=== PATIENT | male | born 1960 | race Caucasian/White ===

== ENCOUNTER → 2020-05-14 14:38 | Outpatient (CLI) | payer OTHER, SELFPAY ==
[2020-05-14 15:30] LABS: Alanine Aminotransferase 33 IU/L (<50); Albumin 4.6 g/dL (3.5-5.0); Albumin Globulin Ratio 1.6 (1.0-2.8); Alkaline Phosphatase 63 U/L (38-126); Aspartate Aminotransferase 26 IU/L (17-59); BUN Creatinine Ratio 19.5 (6-22); Bilirubin Total 0.5 mg/dL (0.2-1.3); Blood Urea Nitrogen 17 mg/dL (9-20); Calcium 9.7 mg/dL (8.4-10.2); Carbon Dioxide 25 mmol/L (22-32); Chloride 107 mmol/L (98-107); Estimated Glomerular Filt Rate > 60.0 mL/min (>60); Globulin 2.8 g/dL (1.7-4.1); Glucose 99 mg/dL (70-100); HEMOLYSIS < 15 (0-50); Sodium 140 mmol/L (137-145); Total Protein 7.4 g/dL (6.3-8.2)
[2020-05-14 15:57] LABS: Prostate Specific Antigen Scrn 1.82 ng/mL (0.1-4.0)
[2020-05-14 16:20] LABS: TSH w/ Reflex to FT4 2.82 uIU/mL (0.47-4.68)
== END ==
PROVIDERS: PCP Family Medicine; Referring Provider Family Medicine; Visit Provider Family Medicine
DX: Z00.00 Encounter for general adult medical examination without abnormal findings (principal); K21.9 Gastro-esophageal reflux disease without esophagitis; M43.22 Fusion of spine, cervical region; Z12.5 Encounter for screening for malignant neoplasm of prostate
CPT/HCPCS: 36415; 80053; 84443; G0103

== ENCOUNTER → 2020-05-18 13:54 | Outpatient (CLI) | payer OTHER, SELFPAY ==
[2020-05-20 12:09] LABS: Fecal Immunochemical Test Negative (Negative)
== END ==
PROVIDERS: PCP Family Medicine; Referring Provider Family Medicine; Visit Provider Family Medicine
DX: Z00.00 Encounter for general adult medical examination without abnormal findings (principal)
CPT/HCPCS: 82274

== ENCOUNTER → 2020-09-08 15:48 | Outpatient (CLI) | payer OTHER, SELFPAY ==
[2020-09-08 16:22] LABS: Add Manual Diff / Slide Review NO; Basophils Absolute Auto 100 /uL (0-100); Eosinophils Absolute Auto 400 /uL (0-450); Hematocrit 44.1 % (41-53); Hemoglobin 15.4 g/dL (13.5-17.5); Lymphocytes Absolute Auto 3200 /uL (1100-4500); Lymphocytes Percent Auto 32.2 % (25-40); Mean Corpuscular Hemoglobin 32.6 PG (26-34); Mean Corpuscular Volume 93.4 fL (80-100); Monocytes Absolute Auto 600 /uL (0-900); Monocytes Percent Auto 5.6 % (3-14); Neutrophils Absolute Auto 5600 /uL (1500-7000); Neutrophils Percent Auto 57.2 % (50-75); Platelet Count 227 X10^3/uL (150-400); Red Blood Cell Count 4.72 X10^6/uL (4.5-5.9); Red Cell Distribution Width 13.3 % (11.6-14.8); White Blood Cell Count 9.9 X10^3/uL (4.5-11.0)
== END ==
PROVIDERS: PCP Family Medicine; Referring Provider Family Medicine; Visit Provider Family Medicine
DX: K21.9 Gastro-esophageal reflux disease without esophagitis (principal); W57.XXXA Bitten or stung by nonvenomous insect and other nonvenomous arthropods, initial encounter
CPT/HCPCS: 36415; 85025; 86617

== ENCOUNTER → 2020-09-10 07:52 | Outpatient (CLI) | payer OTHER, SELFPAY ==
--- NOTE | 2020-09-10 08:06 | DI.CT.S_ITS ---
PROCEDURE: CT HEAD/BRAIN WO/W CON INDICATIONS: Progression in intention tremor TECHNIQUE: 4.5 mm thick angled axial sections acquired from the foramen magnum to the vertex before and after the administration of intravenous contrast, with coronal and sagittal reformats. For radiation dose reduction, the following was used: automated exposure control, adjustment of mA and/or kV according to patient size. COMPARISON: None. FINDINGS: Image quality: Excellent. CSF Spaces: Basal cisterns are patent. No extra-axial fluid collections. Ventricles are normal in size and shape. Brain: No midline shift. No intracranial bleeds or masses. No abnormal intracranial enhancement. Byrd-white interface appears normal. Skull and face: Calvarium and visualized facial bones appear intact, without suspicious lesions. Sinuses: Visualized sinuses and mastoids are clear. IMPRESSION: Normal CT of the brain without and with contrast Dictated by: Ashvin Dennis M.D. on 09/10/2020 at 8:51 Approved by: Ashvin Dennis M.D. on 09/10/2020 at 8:59
== END ==
PROVIDERS: PCP Family Medicine; Referring Provider Family Medicine; Visit Provider Family Medicine
DX: G25.2 Other specified forms of tremor (principal); W57.XXXA Bitten or stung by nonvenomous insect and other nonvenomous arthropods, initial encounter
CPT/HCPCS: 70470

== ENCOUNTER → 2020-12-28 14:05 | Outpatient (CLI) | payer OTHER, SELFPAY ==
[2020-12-28 14:55] LABS: Add Manual Diff / Slide Review NO; Basophils Absolute Auto 100 /uL (0-100); Basophils Percent Auto 1.1 % (0-2); Eosinophils Absolute Auto 500 /uL (0-450); Eosinophils Percent Auto 5.6 % (2-4); Hematocrit 46.9 % (41-53); Hemoglobin 16.1 g/dL (13.5-17.5); Lymphocytes Absolute Auto 3300 /uL (1100-4500); Lymphocytes Percent Auto 34.9 % (25-40); Mean Corpuscular HGB Conc 34.3 % (30-36); Mean Corpuscular Hemoglobin 31.9 PG (26-34); Mean Corpuscular Volume 92.9 fL (80-100); Monocytes Absolute Auto 600 /uL (0-900); Monocytes Percent Auto 6.5 % (3-14); Neutrophils Absolute Auto 4900 /uL (1500-7000); Neutrophils Percent Auto 51.9 % (50-75); Platelet Count 261 X10^3/uL (150-400); Red Blood Cell Count 5.05 X10^6/uL (4.5-5.9); White Blood Cell Count 9.5 X10^3/uL (4.5-11.0)
[2020-12-28 15:09] LABS: Erythrocyte Sedimentation Rate 1 MM/HR (0-15)
[2020-12-28 16:13] LABS: Alanine Aminotransferase 23 IU/L (<50); Albumin 4.2 g/dL (3.5-5.0); Albumin Globulin Ratio 1.6 (1.0-2.8); Alkaline Phosphatase 66 U/L (38-126); Aspartate Aminotransferase 23 IU/L (17-59); BUN Creatinine Ratio 10.5 (6-22); Bilirubin Total 0.5 mg/dL (0.2-1.3); Blood Urea Nitrogen 10 mg/dL (9-20); Calcium 9.2 mg/dL (8.4-10.2); Carbon Dioxide 29 mmol/L (22-32); Chloride 106 mmol/L (98-107); Estimated Glomerular Filt Rate > 60.0 mL/min (>60); Globulin 2.6 g/dL (1.7-4.1); Glucose 105 mg/dL (70-100); HEMOLYSIS < 15 (0-50); Potassium 4.3 mmol/L (3.4-5.1); Sodium 143 mmol/L (137-145); Total Protein 6.8 g/dL (6.3-8.2)
[2020-12-28 16:38] LABS: Thyroid Stimulating Hormone 2.15 uIU/mL (0.47-4.68)
== END ==
PROVIDERS: PCP Family Medicine; Referring Provider Family Medicine; Visit Provider Family Medicine
DX: G25.2 Other specified forms of tremor (principal); W57.XXXA Bitten or stung by nonvenomous insect and other nonvenomous arthropods, initial encounter; I51.9 Heart disease, unspecified; R68.89 Other general symptoms and signs; R53.83 Other fatigue
CPT/HCPCS: 36415; 80053; 84443; 85025; 85651

== ENCOUNTER → 2021-01-24 09:02 | Outpatient (CLI) | payer OTHER, SELFPAY ==
[2021-01-24 12:01] LABS: COVID19 -Nasal RAPID Negative (Negative)
== END ==
PROVIDERS: PCP Family Medicine; Visit Provider Nurse Practitioner Family
DX: Z20.822 Contact with and (suspected) exposure to COVID-19 (principal)
CPT/HCPCS: 87635

== ENCOUNTER → 2021-01-26 14:29 | Outpatient (CLI) | payer OTHER, SELFPAY ==
--- NOTE | 2021-01-26 14:30 | DI.NM.S_ITS ---
PROCEDURE: NM EXERCISE TREADMILL NON NUC COMPARISON: None. INDICATIONS: History of heart disease, increasing exertional fatigue FINDINGS: The patient exercised for 4 minutes and 56 seconds reaching 5.7 METs and GENNY +41%. No angina during the study. Submaximal stress test as only 61% of maximum predicted heart rate achieved (due to dyspnea- pulse ox 89% of room air). Patient didn't bring his inhaler IMPRESSION: Submaximal treadmill ECG only stress test with only 61% of maximum predicted heart rate achieved. Stress test stopped due to dyspnea- pulse ox 89% of room air- and the patient didn't bring inhaler. No ECG evidence of ischemia for the level of exercise reached (but this reduced sensitivity for detecting obstructive coronary artery disease). No angina during the study. Dictated by: Juvenal Dunaway MD on 01/28/2021 at 17:03 Approved by: Juvenal Dunaway MD on 01/28/2021 at 17:08
== END ==
PROVIDERS: PCP Family Medicine; Referring Provider Family Medicine; Visit Provider Family Medicine
DX: I51.9 Heart disease, unspecified (principal); R53.83 Other fatigue
CPT/HCPCS: 93017

== ENCOUNTER → 2021-02-03 13:09 | Outpatient (CLI) | payer OTHER, SELFPAY ==
--- NOTE | 2021-02-03 13:10 | DI.ECHO.S_ITS ---
[facility] +---------+ : : [address] : : : : [phone] : : : : Phone: [phone]+ Echocardiogram Report + + :Name: CHINA ALVARADO Study Date: 02/03/2021 Height: 74 in : :[facility] ReadingLocation: Weight: 240 lb : : Gender: Male BSA: 2.3 m2 : :: 1960 Age: 60 yrs BP: 168/93 mmHg: :Reason For Study: HEART DISEASE, EXTERTIONAL FATIGUE : :Ordering Physician: DEBBIE, : :BERTRAND Performed By: Mily Cui : :Referring: BERTRAND LEWIS : + + Interpretation Summary Left ventricular systolic function is normal with an estimated ejection fraction of 60 to 65% without any focal wall motion abnormality. Diastolic function is likely normal with probable normal filling pressures. The right ventricle appears normal in size and systolic function. Right ventricular systolic pressure cannot be estimated but CVP is likely around 3 mmHg. Both atria are normal in size. There is no significant functional valvular abnormality. The ascending aorta is borderline enlarged. Procedure: A two-dimensional transthoracic echocardiogram with color flow and Doppler was performed. The study quality was technically adequate. There is no prior echocardiogram noted for this patient. The heart rate ranged between 46-53 bpm during the study. Left Ventricle: The left ventricle is normal in size and wall thickness. The estimated left ventricular end diastolic volume is 73 ml. The ejection fraction is estimated to be 60-65%. Left ventricular systolic function appears normal without focal wall motion abnormalities. Diastolic parameters suggest probable normal left ventricular diastolic function and normal filling pressures. Right Ventricle: The right ventricle is normal in size and function. Atria: Both atria are normal in size. There is no Doppler evidence for an interatrial shunt. Mitral Valve: There is mild mitral annular calcification. The mitral valve is grossly normal. There is trace mitral regurgitation. Aortic Valve: The aortic valve is trileaflet. The aortic valve is slightly calcified. The aortic valve opens well. There is no aortic valve stenosis. No aortic regurgitation is present. Tricuspid Valve: The tricuspid valve is normal in structure and function. There is trace tricuspid regurgitation. Pulmonary artery pressures cannot be estimated because of the lack of a measurable TR jet velocity but the IVC suggests a CVP of around 3 mmHg. Pulmonic Valve: The pulmonic valve leaflets are thin and pliable; valve motion is normal. There is no pulmonic valvular regurgitation. There is no significant valvular heart disease. Great Vessels: The aortic root is normal size. The ascending aorta is at the upper limits of normal in size. The IVC is of normal diameter and collapses greater than 50% with a sniff. This suggests a low right atrial pressure of 3 mm Hg. Pericardium/ Pleura There is no pericardial effusion. There is no pleural effusion. MMode/2D Measurements & Calculations LVIDd: 5.7 cm LVOT diam: 2.2 cm LVIDs: 3.5 cm Ao root diam: 3.4 cm FS: 37.7 % asc Aorta Diam: 3.6 cm IVSd: 0.93 cm LVPWd: 0.98 cm LV aly. diameter/BSA (cm/m^2): 2.4 LV sys. diameter/BSA (cm/m^2): 1.5 LA A2 area: 19.7 cm2 RA long axis: 5.0 cm LA A4 area: 18.2 cm2 RA area: 15.6 cm2 LA length (vol): 5.2 cm RA vol: 41.8 ml LA vol: 58.3 ml RA : 17.8 ml/m2 LA vol index: 24.8 ml/m2 IVC diam: 1.2 cm RVD1 (basal): 3.6 cm TAPSE: 2.3 cm Doppler Measurements & Calculations Ao V2 max: 164.7 cm/sec LVOT Max Jose: 94.9 cm/sec Ao V2 mean: 104.2 cm/sec LV V1 max P.6 mmHg Ao max P.8 mmHg LV V1 VTI: 23.1 cm Ao mean P.1 mmHg MANOJ(I,D): 2.4 cm2 Ao V2 VTI: 36.5 cm MANOJ(V,D): 2.2 cm2 sev ratio: 0.63 MANOJ indexed to BSA (cm^2/m^2): 1.0 MV E max jose: 95.5 cm/sec TR max jose: 199.0 cm/sec MV A max jose: 69.0 cm/sec TR max P.8 mmHg MV E/A: 1.4 PA V2 max: 127.6 cm/sec Med Peak E' Jose: 8.0 cm/sec PA V2 mean: 84.5 cm/sec E/E' med: 11.9 PA mean P.3 mmHg Lat Peak E' Jose: 10.4 cm/sec PA pr(Accel): 31.0 mmHg E/E' lat: 9.2 E/e' average: 10.6 MV dec time: 0.24 sec SV(HARJINDER): 87.3 ml Reading Physician:03:17 PM
== END ==
PROVIDERS: PCP Family Medicine; Referring Provider Family Medicine; Visit Provider Family Medicine
DX: I51.9 Heart disease, unspecified (principal); R53.83 Other fatigue
CPT/HCPCS: 93306

== ENCOUNTER → 2022-01-05 10:33 | Outpatient (CLI) | payer OTHER, SELFPAY ==
[2022-01-05 12:04] LABS: Add Manual Diff / Slide Review NO; Basophils Absolute Auto 100 /uL (0-100); Basophils Percent Auto 0.7 % (0-2); Eosinophils Absolute Auto 400 /uL (0-450); Eosinophils Percent Auto 4.8 % (2-4); Hematocrit 45.9 % (41-53); Hemoglobin 15.7 g/dL (13.5-17.5); Lymphocytes Absolute Auto 2300 /uL (1100-4500); Lymphocytes Percent Auto 30.8 % (25-40); Mean Corpuscular HGB Conc 34.2 % (30-36); Mean Corpuscular Hemoglobin 31.9 PG (26-34); Mean Corpuscular Volume 93.1 fL (80-100); Monocytes Absolute Auto 700 /uL (0-900); Monocytes Percent Auto 9.6 % (3-14); Neutrophils Absolute Auto 4100 /uL (1500-7000); Neutrophils Percent Auto 54.1 % (50-75); Platelet Count 222 X10^3/uL (150-400); Red Blood Cell Count 4.92 X10^6/uL (4.5-5.9); White Blood Cell Count 7.6 X10^3/uL (4.5-11.0)
[2022-01-05 12:21] LABS: Hemoglobin A1C% w Est Avg Glu 5.9 % (4.0-6.0)
[2022-01-05 12:37] LABS: Alanine Aminotransferase 38 IU/L (<50); Albumin 4.1 g/dL (3.5-5.0); Albumin Globulin Ratio 1.3 (1.0-2.8); Alkaline Phosphatase 68 U/L (38-126); Aspartate Aminotransferase 25 IU/L (17-59); BUN Creatinine Ratio 16.1 (6-22); Bilirubin Total 0.5 mg/dL (0.2-1.3); Blood Urea Nitrogen 14 mg/dL (9-20); Calcium 8.8 mg/dL (8.4-10.2); Carbon Dioxide 27 mmol/L (22-32); Chloride 104 mmol/L (98-107); Cholesterol 244 mg/dL (140-199); Estimated Glomerular Filt Rate > 60 mL/min (>60); Globulin 3.1 g/dL (1.7-4.1); Glucose 96 mg/dL (80-110); HDL Cholesterol 31 mg/dL (40-60); HEMOLYSIS < 15 (0-50); LDL Cholesterol Calculated 188 mg/dL (<100); Sodium 139 mmol/L (137-145); Total Protein 7.2 g/dL (6.3-8.2); Triglycerides 124 mg/dL (35-150)
[2022-01-05 13:07] LABS: Prostate Specific Antigen 1.72 ng/mL (0.10-4.00)
== END ==
PROVIDERS: PCP Family Medicine; Referring Provider Family Medicine; Visit Provider Family Medicine
DX: Z00.00 Encounter for general adult medical examination without abnormal findings (principal)
CPT/HCPCS: 36415; 80053; 80061; 83036; 84153; 85025

== ENCOUNTER → 2022-01-06 14:30 | Outpatient (CLI) | payer OTHER, SELFPAY ==
[2022-01-09 10:52] LABS: Fecal Immunochemical Test Negative (Negative)
== END ==
PROVIDERS: PCP Family Medicine; Referring Provider Family Medicine; Visit Provider Family Medicine
DX: Z00.00 Encounter for general adult medical examination without abnormal findings (principal)
CPT/HCPCS: 82274

== ENCOUNTER → 2022-02-01 11:31 | Outpatient (CLI) | payer OTHER, SELFPAY ==
[2022-02-01 14:34] LABS: COVID19 -Nasal RAPID Negative (Negative)
== END ==
PROVIDERS: PCP Family Medicine; Referring Provider Internal Medicine; Visit Provider Internal Medicine
DX: Z20.822 Contact with and (suspected) exposure to COVID-19 (principal)
CPT/HCPCS: 87635; C9803

== ENCOUNTER → 2022-02-02 08:06 | Outpatient (CLI) | payer OTHER, SELFPAY ==
--- NOTE | 2022-02-15 08:02 | PM.PFT.1 ---
Pulmonary Function Test Referral & Results Date Patient Seen: 02/02/22 Requesting provider: Tony Blanton Results: The spirometry demonstrates an FVC of 4.30 L which is 79% of predicted. The FEV1 was measured at 3.49 L which is 85% of predicted. The FEV1/FVC ratio was 81 which is 106% of predicted. Following the administration of bronchodilator there was a 10% improvement in FEV1 and a 54% improvement in FEF 25-75%. Lung volumes show an SVC of 4.58 L which is 86% of predicted. The diffusing capacity was measured at 27.18 which is 72% of predicted. No hemoglobin value was provided, so no correction for potential anemia could be made, if appropriate. The maximum voluntary ventilation was normal Interpretation: This study demonstrates possibly mild obstructive lung disease based on reduction FEV1 which is minimal and FEV1/FVC ratio is preserved however there is some evidence of benefit following bronchodilator particularly small airway flow based on improvement in FEF above There is a very minimal reduction in lung volumes suggesting the possibility of very minimal restrictive lung disease There is a minimal reduction diffusing capacity suggesting the possibility of disease at the capillary alveolar level, unless patient is anemic as above Clinical correlation suggested
== END ==
PROVIDERS: PCP Family Medicine; Referring Provider Family Medicine; Visit Provider Family Medicine
DX: J45.20 Mild intermittent asthma, uncomplicated (principal); Z87.891 Personal history of nicotine dependence
CPT/HCPCS: 94060; 94726; 94729

== ENCOUNTER 2022-09-28 11:22 | Emergency (ER) | payer OTHER, SELFPAY ==
[2022-09-28] VITALS (16 sets, daily range): BP systolic 116–161; BP diastolic 67–81; PULSE 45–62; RESP 12–23; TEMP 35.8; O2SAT 91–99; BMI 30.8
[2022-09-28 13:23] LABS: Add Manual Diff / Slide Review NO; Basophils Absolute Auto 200 /uL (0-100); Basophils Percent Auto 1.3 % (0-2); Eosinophils Absolute Auto 100 /uL (0-450); Eosinophils Percent Auto 0.6 % (2-4); Hematocrit 45.8 % (41-53); Hemoglobin 16.2 g/dL (13.5-17.5); Lymphocytes Absolute Auto 2400 /uL (1100-4500); Lymphocytes Percent Auto 15.6 % (25-40); Mean Corpuscular HGB Conc 35.5 % (30-36); Mean Corpuscular Hemoglobin 32.8 PG (26-34); Mean Corpuscular Volume 92.6 fL (80-100); Monocytes Absolute Auto 1600 /uL (0-900); Monocytes Percent Auto 10.3 % (3-14); Neutrophils Absolute Auto 11300 /uL (1500-7000); Neutrophils Percent Auto 72.2 % (50-75); Platelet Count 194 X10^3/uL (150-400); Red Blood Cell Count 4.95 X10^6/uL (4.5-5.9); White Blood Cell Count 15.6 X10^3/uL (4.5-11.0)
[2022-09-28 13:38] LABS: Alanine Aminotransferase 38 IU/L (<50); Albumin 4.1 g/dL (3.5-5.0); Albumin Globulin Ratio 1.2 (1.0-2.8); Alkaline Phosphatase 83 U/L (38-126); Aspartate Aminotransferase 24 IU/L (17-59); BUN Creatinine Ratio 16.2 (6-22); Bilirubin Total 2.4 mg/dL (0.2-1.3); Blood Urea Nitrogen 19 mg/dL (9-20); Calcium 8.9 mg/dL (8.4-10.2); Carbon Dioxide 25 mmol/L (22-32); Chloride 102 mmol/L (98-107); Estimated Glomerular Filt Rate > 60 mL/min (>60); Globulin 3.4 g/dL (1.7-4.1); Glucose 119 mg/dL (80-110); HEMOLYSIS < 15 (0-50); Lipase 53 U/L (23-300); Potassium 3.6 mmol/L (3.4-5.1); Sodium 136 mmol/L (137-145); Total Protein 7.5 g/dL (6.3-8.2)
[2022-09-28] MEDS: SODIUM CHLORIDE 0.9% 1,000 ML 1000 ML IV (14:20)
--- NOTE | 2022-09-28 14:28 | ED_ITS ---
HPI - Abdominal Pain General Chief Complaint: Abdominal Pain Stated Complaint: V/D/ Rlower quadrant pain PCP ref T-1 Time Seen by Provider: 09/28/22 14:13 Source: patient Mode of arrival: Wheelchair Limitations: no limitations History of Present Illness HPI narrative: 62-year-old male with reported history of asthma who takes ibuprofen regularly and uses an inhaler. Patient states he is had abdominal pain since yesterday. He went to the store [employer] and milk came home started feeling nauseated had dry heaves with minimal production most sort of phlegmy. He states no blood. No black. He states he started to feel little bit of pain in his lower abdomen sort of suprapubically in over to the right. States it worsened throughout the night. He started to have some diarrhea but very small amounts that was a little bit yellow, no bright red blood or melanotic stools. He felt the need to urinate several times overnight with some urgency and frequency and got very sweaty. He states he has not urinated since about midnight. Patient states pain seems to be localized at this point more suprapubically is more on the right but is somewhat on the left. He has not had similar symptoms in the past. No objective fevers but states he was really sweaty last night. He has not taking any medication recently for pain. He states his only medications are his inhaler and ibuprofen. He is had multiple orthopedic surgeries for joints. No known drug allergies. Quit smoking tobacco but does chew through a pack of [place] every 10 days, for alcoholic drinks weekly, uses THC but no recreational drugs. Dr. Blanton is his primary care. Related Data Home Medications Medication Instructions Recorded Confirmed esomeprazole magnesium 20 mg 20 mg PO DAILY 05/14/20 02/01/22 capsule,delayed release (Nexium 24HR) ibuprofen 200 mg capsule 400 mg PO Q4-6H PRN 01/05/22 02/01/22 Previous Rx's Medication Instructions Recorded albuterol sulfate 90 mcg/actuation 2 puff inhalation Q4-6H PRN 07/09/21 aerosol inhaler (ProAir HFA) shortness of breath or wheezing #18 grams sildenafil (pulm.hypertension) 20 20 mg PO ONCE PRN sexual activity 01/05/22 mg tablet #30 tabs rosuvastatin 10 mg tablet (Crestor) 10 mg PO DAILY #90 tabs 02/01/22 amoxicillin 875 mg-potassium 1 tab PO BID #20 tabs 09/28/22 clavulanate 125 mg tablet ondansetron 4 mg disintegrating 4 mg PO Q6H PRN nausea and 09/28/22 tablet vomiting #7 tabs Allergies Allergy/AdvReac Type Severity Reaction Status Date / Time tree nut Allergy Severe anaphylaxis Verified 09/28/22 11:47 animal dander Allergy Mild watery Verified 09/28/22 11:47 eyes, chest congestion Review of Systems Review of Systems ROS Unobtainable: All systems reviewed & are unremarkable except as noted in HPI and below Patient History Medical History Asthma Cervical vertebral fusion Cold intolerance GERD (gastroesophageal reflux disease) Heart disease Hyperlipidemia Intention tremor Preventative health care Skin lesion Well adult exam Social History Smoking Status: Former smoker Tobacco: How many years used: 30 Smokeless tobacco user: chewing tobacco quit status: has quit before alcohol intake: current substance use type: marijuana Smoking Status: Former smoker alcohol intake frequency: a few times a week Substance Use Type: marijuana Exam Narrative Exam Narrative: GENERAL: Alert and oriented x three, obese male in mild distress. HEENT: Head normocephalic, atraumatic, EOMI, pupils reactive, face symmetric, moist mucous membranes NECK: Supple, full range of motion CARDIOVASCULAR: Regular rate and rhythm without murmurs, rubs or gallops. RESPIRATORY: Breath sounds equal bilaterally, no wheezes rales or rhonchi. ABDOMEN: Soft, generalized tenderness greatest suprapubically into the right but somewhat on the left as well. Normoactive bowel sounds all 4 quadrants. No guarding or rebound, rigidity, no mass. Nondistended. : No CVA tenderness EXTREMITIES: Normal range of motion, no clubbing or edema. Neurovascularly intact NEUROLOGICAL: Cranial nerves II through XII grossly intact. Moving all extremities. Normal gait. SKIN: Warm, dry, no petechiae, no rashes or lesions. Initial Vital Signs Initial Vital Signs: Vital Signs Temperature 96.4 F L 09/28/22 11:42 Pulse Rate 62 09/28/22 11:42 Respiratory Rate 20 09/28/22 11:42 Blood Pressure 129/67 09/28/22 11:42 Pulse Oximetry 98 09/28/22 11:42 Oxygen Delivery Method Room Air 09/28/22 11:42 Course Orders Ordered: ED Orders 09/28/22 12:09 EKG-12 Lead Stat 09/28/22 13:11 Complete Blood Count AUTO DIFF Stat Comprehensive Metabolic Panel Stat Lipase Stat 09/28/22 14:35 CT abdomen pelvis w con Stat 09/28/22 15:22 Urine Culture Stat Urine Microscopic Stat Discontinued Medications Amoxicillin/Clavulanate Potassium (Amoxicillin/Clav 875/125 Mg) 1 tab PO NOW ONE Stop: 09/28/22 16:15 Last Admin: 09/28/22 16:24 Dose: 1 tab Documented By: GLADYS Sodium Chloride (Normal Saline 0.9%) 1,000 mls @ 1,000 mls/hr IV BOLUS ONE Stop: 09/28/22 15:14 Last Infusion: 09/28/22 15:38 Dose: 0 mls/hr Documented By: Admin: 09/28/22 14:20 Dose: 1,000 mls/hr Documented By: GLADYS Piperacillin Sod/Tazobactam (Sod 4.5 gm/ Sodium Chloride) 100 mls @ 200 mls/hr IV NOW ONE Stop: 09/28/22 15:19 Last Infusion: 09/28/22 16:17 Dose: 0 mls/hr Documented By: Admin: 09/28/22 15:41 Dose: 200 mls/hr Documented By: GLADYS Ondansetron HCl (Ondansetron 4 Mg Odt) 4 mg PO NOW PRN PRN Reason: Nausea And Vomiting Ondansetron HCl (Ondansetron 4 Mg/2 Ml Inj) 4 mg IV NOW PRN PRN Reason: Nausea And Vomiting Vital Signs Vital signs: Vital Signs - 8 hr 09/28/22 11:42 09/28/22 13:02 09/28/22 13:03 Temperature 96.4 F L Pulse Rate 62 Respiratory Rate 20 Blood Pressure 129/67 139/74 Pulse Oximetry 98 91 Oxygen Delivery Method Room Air 09/28/22 13:03 09/28/22 13:30 09/28/22 13:31 Temperature Pulse Rate 55 L 49 L 48 L Respiratory Rate Blood Pressure Pulse Oximetry 96 96 96 Oxygen Delivery Method 09/28/22 13:31 09/28/22 13:59 09/28/22 14:00 Temperature Pulse Rate 45 L Respiratory Rate 23 Blood Pressure 116/72 120/81 Pulse Oximetry 97 Oxygen Delivery Method 09/28/22 14:00 09/28/22 14:30 09/28/22 14:30 Temperature Pulse Rate 49 L 53 L Respiratory Rate 17 20 Blood Pressure 130/69 Pulse Oximetry 96 98 Oxygen Delivery Method 09/28/22 14:48 09/28/22 14:48 09/28/22 15:00 Temperature Pulse Rate 49 L Respiratory Rate 16 Blood Pressure 161/77 H 119/70 Pulse Oximetry 99 Oxygen Delivery Method 09/28/22 15:00 09/28/22 15:30 09/28/22 15:31 Temperature Pulse Rate 50 L 52 L Respiratory Rate 12 16 Blood Pressure 119/76 Pulse Oximetry 98 Oxygen Delivery Method 09/28/22 15:31 09/28/22 16:00 09/28/22 16:01 Temperature Pulse Rate 55 L 50 L Respiratory Rate 14 15 Blood Pressure 143/72 H Pulse Oximetry 98 99 Oxygen Delivery Method 09/28/22 16:01 09/28/22 16:30 09/28/22 17:00 Temperature Pulse Rate 50 L 51 L 52 L Respiratory Rate 19 16 15 Blood Pressure Pulse Oximetry 99 98 98 Oxygen Delivery Method MDM - Abdominal Pain Lab Data 09/28/22 13:11 09/28/22 13:11 Labs: Lab Results 09/28/22 09/28/22 09/28/22 Range/Units 13:11 13:11 15:22 WBC 15.6 H (4.5-11.0) X10^3/uL RBC 4.95 (4.5-5.9) X10^6/uL Hgb 16.2 (13.5-17.5) g/dL Hct 45.8 (41-53) % MCV 92.6 (80-100) fL MCH 32.8 (26-34) PG MCHC 35.5 (30-36) % RDW 13.0 (11.6-14.8) % Plt Count 194 (150-400) X10^3/uL Neut % (Auto) 72.2 (50-75) % Lymph % (Auto) 15.6 L (25-40) % [place] % (Auto) 10.3 (3-14) % Eos % (Auto) 0.6 L (2-4) % Baso % (Auto) 1.3 (0-2) % Neut # (Auto) 14947 H (0621-3569) /uL Lymph # (Auto) 2400 (6381-6316) /uL [place]ois # (Auto) 1600 H (0-900) /uL Eos # (Auto) 100 (0-450) /uL Baso # (Auto) 200 H (0-100) /uL Sodium 136 L (137-145) mmol/L Potassium 3.6 (3.4-5.1) mmol/L Chloride 102 (98-107) mmol/L Carbon Dioxide 25 (22-32) mmol/L BUN 19 (9-20) mg/dL Creatinine 1.17 (0.66-1.25) mg/dL Estimated GFR > 60 (>60) mL/min BUN/Creatinine Ratio 16.2 (6-22) Glucose 119 H (80-110) mg/dL Calcium 8.9 (8.4-10.2) mg/dL Total Bilirubin 2.4 H (0.2-1.3) mg/dL AST 24 (17-59) IU/L ALT 38 (<50) IU/L Alkaline Phosphatase 83 (38-126) U/L Total Protein 7.5 (6.3-8.2) g/dL Albumin 4.1 (3.5-5.0) g/dL Globulin 3.4 (1.7-4.1) g/dL Albumin/Globulin Ratio 1.2 (1.0-2.8) Lipase 53 (23-300) U/L Urine RBC 0-1/hpf (0-5/HPF) Urine WBC 1-5/hpf (0-5/HPF) Ur Squamous Epith Cells 0-1 /hpf (0-5/HPF) Urine Bacteria Occasional (0-1) (None) Hyaline Casts 1-5/lpf (None) Ur Culture Indicated? Specimen cultured Point of care testing: Urine Dip Bedside Urine Glucose Negative Bedside Urine Bilirubin - Negative Bedside Urine Ketone +/- 5 Urine Specific [place] 1.010 Bedside Urine Occult Blood - Negative Bedside Urine pH 6.0 Bedside Urine Protein +/- 15 Bedside Urine Urobilinogen - Negative Bedside Urine Nitrite - Negative Bedside Urine Leukocytes +/- [address] scan - abdomen/pelvis: Radiologist's Impression: Close Abdomen/Pelvis CT (Signed) Ashvin Dennis - 09/28/22 Launch?Image [address] [address] [address] Scan Report Signed Patient: Santhosh Skinner MR#: [id number] : 1960 Acct:[id number] Age/Sex: 62 / M Date of Service: 09/28/22 Loc: ED Accession Number: [id number] ?? Procedure: CT abdomen pelvis w con Ordering Provider: Lucy Moran D.O. PROCEDURE:? CT ABDOMEN PELVIS W CON ? INDICATIONS:? lower abd pain R>L x 24 hours ? TECHNIQUE:? After the administration of intravenous contrast, axial sections acquired from the lung bases to the pubic symphysis.? Coronal and sagittal reformats were performed.? For radiation dose reduction, the following was used:? automated exposure control, adjustment of mA and/or kV according to patient size.? ? COMPARISON:? None. ? FINDINGS: Image quality:? Excellent.? ? Lung bases:? Lung bases are clear.? Heart size is normal. ? Solid organs:? Liver: The liver has no mass or intrahepatic biliary ductal dilatation. The portal vein and hepatic veins are patent.? The liver has decreased density consistent with hepatic steatosis. Biliary: The gallbladder has no gallstones, pericholecystic fluid, gallbladder wall thickening, or surrounding inflammatory change. Pancreas: The pancreas has no mass or ductal dilatation. There is no surrounding inflammation. Spleen: Normal size. There are no masses. Adrenals: No hypertrophy or nodules. Kidneys: No obstructive calculus or hydronephrosis.? No solid mass. No cystic mass. ? Peritoneum and bowel:? The distal esophagus and stomach are normal.? The small bowel has a normal caliber and appearance. The terminal ileum is normal.? There is diverticulosis of the sigmoid colon with an area of contained perforation series 2, image 74. No abscess.? No free air.? ? Nodes and vessels:? No retroperitoneal or mesenteric adenopathy by size criteria.? Aorta and inferior vena cava are normal in size.? ? Miscellaneous:? No abdominal wall mass or hernia. ? PELVIS:? Genitourinary:? The bladder has no wall thickening or mass. No bladder calcifications. ? Bones:? No suspicious bony lesions.? No vertebral body compression fractures.? ? IMPRESSION:? Acute diverticulitis of the sigmoid colon with a small focus of contained perforation.? No free air or abscess. ? ? Dictated by: Ashvin Dennis M.D. on 09/28/2022 at 14:58 ? ? Approved by: Ashvin Dennis M.D. on 09/28/2022 at 15:02?? ECG Data Attestation: I personally reviewed and interpreted this ECG as follows: Interpretation: Sinus bradycardia rate of 50 6p are 152 QRS of 94 and QTC 440. No acute ST elevation or depression appreciated incomplete right bundle. MDM Narrative Medical decision making narrative: This is 62-year-old male with no reported medical issues beyond asthma and osteoarthritis. Patient presents with complaint of abdominal pain nausea vomiting and small amounts of diarrhea that started last night. Patient states he did have a sense of urgency and frequency last night has not had any since midnight. Patient states he was quite sweaty. He denies any flank pain. Patient describes lower abdominal pain right greater than left but somewhat suprapubically. White count of 15 on labs, normal hemoglobin and platelets. Sodium is 136 normal electrolytes otherwise glucose of 119 with a normal renal function and BUN. Bilirubin is elevated 2.4 but LFTs are otherwise negative. Point of care urine shows no acute change. Patient received a L of fluids, Zofran he defers anything for pain. Discussed plan for imaging would obtain CT abdomen pelvis with contrast to evaluate for appendicitis versus colitis/diverticulitis or possibly kidney stone although less likely without flank pain or other potential causes. CT abdomen pelvis acute diverticulitis sigmoid colon with focus of contained perforation. No free air or abscess. Spoke with Dr. Chow, images were reviewed. If patient can tolerate oral antibiotics could discharge home with close follow-up and plan for outpatient colonoscopy. If not would plan for admission to the hospital. Patient was given an oral challenge in the department tolerated without issue, after discussion with patient he feels comfortable returning home. Patient given oral dose of antibiotic here which he also tolerated. Patient and I discussed return precautions. Script for Zofran as well as antibiotic sent. Patient defers an ything for pain. Discharge Plan Departure Patient Disposition: Home Clinical Impression: Diverticulitis Instructions: DI for Diverticulitis Activity Restrictions/Additional Instructions: You have diverticulitis of the sigmoid colon with a small area of contained perforation there is no free air or abscess appreciated. I reviewed your case with General surgery they recommend outpatient follow-up and colonoscopy in the future after your symptoms are resolved. Take oral antibiotics until completed. You may take Tylenol up to a 1000 mg and/or ibuprofen up to 600 mg every 6 hours as needed for pain. Prescription sent to [facility]. Please return for fevers, worsening abdominal pain, vomiting, black or bloody stools or if you are having other new or concerning changes. Prescriptions: New amoxicillin-pot clavulanate 875-125 mg tablet 1 tab PO BID Qty: 20 0RF ondansetron 4 mg tablet,disintegrating 4 mg PO Q6H PRN (Reason: nausea and vomiting) Qty: 7 0RF No Action albuterol sulfate [ProAir HFA] 90 mcg/actuation HFA aerosol inhaler 2 puff inhalation Q4-6H PRN (Reason: shortness of breath or wheezing) Qty: 18 3RF esomeprazole magnesium [Nexium 24HR] 20 mg capsule,delayed release(DR/EC) 20 mg PO DAILY ibuprofen 200 mg capsule 400 mg PO Q4-6H PRN sildenafil (pulm.hypertension) 20 mg tablet 20 mg PO ONCE PRN (Reason: sexual activity) Qty: 30 3RF rosuvastatin [Crestor] 10 mg tablet 10 mg PO DAILY Qty: 90 3RF Referrals: Alex Chow MD [Physician] - Tony Blanton DO [Primary Care Provider] - Stand Alone Forms: Patient Portal/API
--- NOTE | 2022-09-28 14:35 | DI.CT.S_ITS ---
PROCEDURE: CT ABDOMEN PELVIS W CON INDICATIONS: lower abd pain R>L x 24 hours TECHNIQUE: After the administration of intravenous contrast, axial sections acquired from the lung bases to the pubic symphysis. Coronal and sagittal reformats were performed. For radiation dose reduction, the following was used: automated exposure control, adjustment of mA and/or kV according to patient size. COMPARISON: None. FINDINGS: Image quality: Excellent. Lung bases: Lung bases are clear. Heart size is normal. Solid organs: Liver: The liver has no mass or intrahepatic biliary ductal dilatation. The portal vein and hepatic veins are patent. The liver has decreased density consistent with hepatic steatosis. Biliary: The gallbladder has no gallstones, pericholecystic fluid, gallbladder wall thickening, or surrounding inflammatory change. Pancreas: The pancreas has no mass or ductal dilatation. There is no surrounding inflammation. Spleen: Normal size. There are no masses. Adrenals: No hypertrophy or nodules. Kidneys: No obstructive calculus or hydronephrosis. No solid mass. No cystic mass. Peritoneum and bowel: The distal esophagus and stomach are normal. The small bowel has a normal caliber and appearance. The terminal ileum is normal. There is diverticulosis of the sigmoid colon with an area of contained perforation series 2, image 74. No abscess. No free air. Nodes and vessels: No retroperitoneal or mesenteric adenopathy by size criteria. Aorta and inferior vena cava are normal in size. Miscellaneous: No abdominal wall mass or hernia. PELVIS: Genitourinary: The bladder has no wall thickening or mass. No bladder calcifications. Bones: No suspicious bony lesions. No vertebral body compression fractures. IMPRESSION: Acute diverticulitis of the sigmoid colon with a small focus of contained perforation. No free air or abscess. Dictated by: Ashvin Dennis M.D. on 09/28/2022 at 14:58 Approved by: Ashvin Dennis M.D. on 09/28/2022 at 15:02
[2022-09-28] MEDS: PIPERACILLIN/TAZO 4.5 GM in SODIUM CHLORIDE 0.9% 100 ML IV (15:41)
[2022-09-28 15:44] LABS: Bacteria Urine Occasional (0-1); Culture Indicated Urine Specimen Cultured; Hyaline Casts Urine 1-5/LPF; RBC Urine 0-1/HPF (0-5/HPF); Squamous Epithelial Cell Urine 0-1 /HPF (0-5/HPF); WBC Urine 1-5/HPF (0-5/HPF)
[2022-09-28] MEDS: AMOXICILLIN/CLAV 875/125 MG 1 TAB PO (16:24)
== END 2022-09-28 17:15 | disposition home or self-care (01) ==
PROVIDERS: Emergency Provider Emergency Medicine; PCP Family Medicine
DX: K57.92 Diverticulitis of intestine, part unspecified, without perforation or abscess without bleeding (principal); R79.89 Other specified abnormal findings of blood chemistry; R11.2 Nausea with vomiting, unspecified
CPT/HCPCS: 36415; 51798; 74177; 80053; 81003; 81015; 83690; 85025; 87086; 93005; 93010; 96361; 96365; 99284; J2543; Q9967

== ENCOUNTER → 2023-08-27 14:45 | Outpatient (CLI) | payer OTHER, SELFPAY ==
[2023-08-27 15:50] LABS: Add Manual Diff / Slide Review NO; Basophils Absolute Auto 100 /uL (0-100); Basophils Percent Auto 0.9 % (0-2); Eosinophils Absolute Auto 300 /uL (0-450); Eosinophils Percent Auto 3.3 % (2-4); Hematocrit 46.7 % (41-53); Lymphocytes Absolute Auto 2200 /uL (1100-4500); Lymphocytes Percent Auto 29.1 % (25-40); Mean Corpuscular HGB Conc 34.3 % (30-36); Mean Corpuscular Hemoglobin 32.4 PG (26-34); Mean Corpuscular Volume 94.3 fL (80-100); Monocytes Absolute Auto 600 /uL (0-900); Monocytes Percent Auto 8.4 % (3-14); Neutrophils Absolute Auto 4500 /uL (1500-7000); Neutrophils Percent Auto 58.3 % (50-75); Platelet Count 228 X10^3/uL (150-400); Red Blood Cell Count 4.95 X10^6/uL (4.5-5.9); Red Cell Distribution Width 13.4 % (11.6-14.8); White Blood Cell Count 7.7 X10^3/uL (4.5-11.0)
[2023-08-27 16:19] LABS: Alanine Aminotransferase 25 IU/L (<50); Albumin 4.1 g/dL (3.5-5.0); Albumin Globulin Ratio 1.5 (1.0-2.8); Alkaline Phosphatase 56 U/L (38-126); Aspartate Aminotransferase 27 IU/L (17-59); BUN Creatinine Ratio 10.7 (6-22); Bilirubin Total 1.1 mg/dL (0.2-1.3); Blood Urea Nitrogen 11 mg/dL (9-20); Calcium 9.1 mg/dL (8.4-10.2); Carbon Dioxide 29 mmol/L (22-32); Chloride 108 mmol/L (98-107); Estimated Glomerular Filt Rate > 60 mL/min (>60); Globulin 2.8 g/dL (1.7-4.1); Glucose 101 mg/dL (80-110); HEMOLYSIS < 15 (0-50); Potassium 4.2 mmol/L (3.4-5.1); Sodium 140 mmol/L (137-145); Total Protein 6.9 g/dL (6.3-8.2)
[2023-08-27 16:54] LABS: Hepatitis B Surface Antigen NEGATIVE s/c (NEGATIVE)
[2023-08-27 17:20] LABS: HIV 1 & 2 Ab/Ag 4th Gen Combo NEGATIVE (NEGATIVE); Hep C Virus Ab w/Reflex Quant NEGATIVE s/c (NEGATIVE)
[2023-08-28 04:10] LABS: HSV 2 IGG AB < 0.91 index (0.00-0.90)
[2023-08-28 04:36] LABS: RPR Screen Non Reactive (Non Reactive)
== END ==
PROVIDERS: PCP Family Medicine; Referring Provider Nurse Practitioner Family; Visit Provider Nurse Practitioner Family
DX: R82.90 Unspecified abnormal findings in urine (principal); R53.83 Other fatigue; R30.0 Dysuria
CPT/HCPCS: 36415; 80053; 85025; 86592; 86695; 86696; 86803; 87086; 87340; 87389